=== PATIENT | female | born 1975 | race Caucasian/White ===

== ENCOUNTER 2018-05-19 12:25 | Emergency (ER) | payer OTHER ==
[~2018-05-19] VITALS: Ht 157.5 cm; Wt 63.5 kg
--- NOTE | 2018-05-19 13:54 | Diagnostic Imaging Report ---
EXAM: Bilateral wrists at 1:44 p.m. INDICATION: Wrist pain 3 views of each wrist were obtained. COMPARISON: There are no prior studies available for comparison. There is no fracture, dislocation or acute bony MS identified. There is a faint band of slightly increased density extending transversely through the waist of the navicular bone of the right hand. This is unlikely to represent a fracture but if further imaging is desired, then MRI would recommended. The radiocarpal joints are fairly well-maintained. The soft tissues are unremarkable. IMPRESSION: 1. There is no acute bony abnormality identified. 2. The area of altered density within the waist of the navicular bone on the right is of uncertain etiology although unlikely related to a fracture. Recommendations as above. Dictated by: Dictated on workstation # [id number]
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
[2018-05-19] MEDS ORDERED: HYDROmorphone 2 MG/ML VIAL (DILAUDID) IV STA (14:24)
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
[2018-05-19] MEDS ORDERED: OXYC-465 PO (14:42)
[2018-05-19] MEDS ORDERED: HYDROmorphone 2 MG/ML VIAL (DILAUDID) IM ONE (14:45)
[2018-05-19 14:57] VITALS: BP 132/87
== END 2018-05-19 14:58 | disposition home or self-care (01) ==
LOC: ER 12:27
DX: S66.911A Strain of unspecified muscle, fascia and tendon at wrist and hand level, right hand, initial encounter (principal); S66.912A Strain of unspecified muscle, fascia and tendon at wrist and hand level, left hand, initial encounter; S70.02XA Contusion of left hip, initial encounter; G40.909 Epilepsy, unspecified, not intractable, without status epilepticus; R40.2142 Coma scale, eyes open, spontaneous, at arrival to emergency department; R40.2252 Coma scale, best verbal response, oriented, at arrival to emergency department; R40.2362 Coma scale, best motor response, obeys commands, at arrival to emergency department; F17.210 Nicotine dependence, cigarettes, uncomplicated; Z90.89 Acquired absence of other organs; V53.5XXA Driver of pick-up truck or van injured in collision with car, pick-up truck or van in traffic accident, initial encounter
CPT/HCPCS: 73502; 96372